=== PATIENT | male | born 1995 | race African-American/Black ===

== ENCOUNTER 2019-11-07 06:36 | Emergency (ER) | payer BC, SELFPAY | END 2019-11-07 06:55 | disposition home or self-care (01) | LOC: ERS 06:36 | DX: J06.9 Acute upper respiratory infection, unspecified (principal); F17.210 Nicotine dependence, cigarettes, uncomplicated | CPT/HCPCS: 99283 ==

== ENCOUNTER 2021-08-25 20:02 | Emergency (ER) | payer SELFPAY ==
[2021-08-25] MEDS ORDERED: Ondansetron ODT 4 MG TAB ONE (21:27)
== END 2021-08-25 22:11 | disposition home or self-care (01) ==
LOC: ERS 20:02
DX: R11.2 Nausea with vomiting, unspecified (principal); F17.210 Nicotine dependence, cigarettes, uncomplicated
CPT/HCPCS: 99283; Q0162

== ENCOUNTER 2022-08-13 09:19 | Emergency (ER) | payer SELFPAY ==
[2022-08-13] MEDS ORDERED: Ibuprofen 800 MG TAB ONE (09:43)
== END 2022-08-13 10:07 | disposition home or self-care (01) ==
LOC: ERS 09:19
DX: J02.9 Acute pharyngitis, unspecified (principal)
CPT/HCPCS: 99283

== ENCOUNTER 2022-08-18 22:48 | Emergency (ER) | payer SELFPAY | END 2022-08-19 00:30 | disposition home or self-care (01) | LOC: ERS 22:48 | DX: E86.0 Dehydration (principal); F17.290 Nicotine dependence, other tobacco product, uncomplicated | CPT/HCPCS: 99283 ==

== ENCOUNTER 2022-12-20 16:33 | Emergency (ER) | payer SELFPAY ==
[2022-12-20] MEDS ORDERED: HYDROcodone/Acetaminophen 5/325 mg Tablet ONE (18:38)
[2022-12-20] MEDS ORDERED: Cyclobenzaprine 10 MG TAB ONE (18:38)
== END 2022-12-20 19:15 | disposition home or self-care (01) ==
LOC: ERS 16:33
DX: S43.52XA Sprain of left acromioclavicular joint, initial encounter (principal); F17.200 Nicotine dependence, unspecified, uncomplicated; X50.0XXA Overexertion from strenuous movement or load, initial encounter; X50.9XXA Other and unspecified overexertion or strenuous movements or postures, initial encounter

== ENCOUNTER 2022-12-22 19:59 | Emergency (ER) | payer SELFPAY | END 2022-12-22 22:11 | disposition home or self-care (01) | LOC: ERS 19:59 | DX: Z00.00 Encounter for general adult medical examination without abnormal findings (principal) | CPT/HCPCS: 99282 ==